=== PATIENT | female | born 1980 | race Caucasian/White ===

== ENCOUNTER 2022-09-02 18:26 | Emergency (ER) | payer BC ==
[2022-09-02] MEDS ORDERED: ACETAMINOPHEN 325 MG TABLET (FP) PO ONE (18:36)
[2022-09-02] MEDS ORDERED: DIPHTH,PERTUSS(ACELL),TET 0.5 ML DISP.SYRIN IM ONE ×2 (18:37→19:07)
[2022-09-02] MEDS ORDERED: AMOX TR/POT CLAV 875MG/125MG TABLETS (FP) PO ONE (18:56)
[2022-09-02 19:03] VITALS: BP 124/84; PULSE 96; RESP 20; TEMP 98.2; BMI 22.3
[2022-09-02] MEDS ORDERED: ACETAMINOPHEN 325 MG TABLET (FP) ONE (19:07)
[2022-09-02] MEDS ORDERED: AMOX TR/POT CLAV 875MG/125MG TABLETS (FP) ONE (19:07)
== END 2022-09-02 19:13 | disposition home or self-care (01) ==
LOC: FER 18:26
PROC: 3E0234Z Introduction of Serum, Toxoid and Vaccine into Muscle, Percutaneous Approach (ICD-10-PCS; principal; 2022-09-02)
DX: S61.451A Open bite of right hand, initial encounter (principal); W54.0XXA Bitten by dog, initial encounter
CPT/HCPCS: 73130-TC-RT-FY; 90715; 99283-25